=== PATIENT | female | born 2000 | race Caucasian/White ===

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

== ENCOUNTER 2022-06-09 15:53 | Emergency (ER) | payer OTHER ==
[~2022-06-09] VITALS: Ht 165.1 cm; Wt 63.5 kg
[2022-06-09 17:11] VITALS: BP 139/88
--- NOTE | 2022-06-09 22:40 | NUR ---
CALLED TO BE SEEN BY ERMD, NO RESPONSE
--- NOTE | 2022-06-09 22:40 | NUR ---
PATIENT LEFT WITHOUT BEING SEEN BY DR. ZARAGOZA. NO FURTHER CARE PROVIDED FOR PATIENT.
--- NOTE | 2022-06-09 22:45 | NUR ---
CALLED FOR SECOND TIME , NO RESPONSE
--- NOTE | 2022-06-09 22:55 | NUR ---
CALLED FOR THE THIRD TIME NO RESPONSE
== END 2022-06-09 22:40 | disposition left against medical advice (07) ==
LOC: MED 15:53
DX: R51.9 Headache, unspecified (principal); Z53.21 Procedure and treatment not carried out due to patient leaving prior to being seen by health care provider